=== PATIENT | female | born 1970 | race Caucasian/White ===

== ENCOUNTER 2016-11-02 07:04 | Emergency (ER) | payer OTHER ==
[~2016-11-02] VITALS: Ht 160 cm; Wt 152.0 kg
[~2016-11-02 07:04] MED LIST: AMLO-147 PO; ASPI-664 PO; BENA10TA48 PO; FENO145T19 PO; HYDR2TAB36 PO; INSU100V14 SC; METF1000 PO; METO10TA92 PO; METR500T PO; NPH,100V SC; PANT40TA3 PO; SITA100T8 PO
[2016-11-02 07:16] VITALS: Ht 160 cm; Wt 152.0 kg
[2016-11-02] MEDS ORDERED: ONDANSETRON (ODT) 4 MG TAB ODT STA (07:33)
[2016-11-02] MEDS ORDERED: HYDR-902 PO (07:35)
[2016-11-02] MEDS ORDERED: DIAZ-90 PO (07:35)
[2016-11-02] MEDS ORDERED: IBUP800T25 PO (07:35)
[2016-11-02] MEDS ORDERED: ONDA4TAB14 PO (07:35)
--- NOTE | 2016-11-02 07:41 | ERA ---
ER Documentation Chief Complaint Date/Time DATE: 11/02/16 TIME: 07:37 Chief Complaint NECK PAIN X 1 WEEK. HPI 46-year-old female. The patient has a history of hypothyroidism, morbid obesity, diabetes. The patient presents with approximately 1-2 weeks of neck pain. She describes it as paraspinal right sided to the trapezius and right upper extremity that is dull aching and throbbing and is worse with movement. She denies any motor weakness, no numbness or tingling, no falls or injuries. She denies any chest pain or headache, no dizziness or vertigo. She denies any migratory pain. She states the pain is improved with Motrin but persistence caused her to come to the emergency room. The patient's blood pressure is noted be elevated, she has a history of prolonged essential hypertension and states compliance with her medications. She states her blood pressure becomes elevated when she is in pain. She denies any chest pain or mid back pain. ROS All systems reviewed and are negative except as per history of present illness. Medications Home Meds Active Scripts Diazepam* (Valium*) 5 Mg Tablet, 5 MG PO Q8 Y for MUSCLE SPASMS, #10 TAB Prov:MARILOU KAUR MD 11/02/16 Ondansetron (Ondansetron Odt) 4 Mg Tab.rapdis, 4 MG PO Q6H Y for NAUSEA AND/OR VOMITING, #30 TAB Prov:MARILOU KAUR MD 11/02/16 Hydrocodone/Acetaminophen (Broadus 10-325 Tablet) 1 Each Tablet, 1 TAB PO Q6H Y for PAIN, #10 TAB Prov:MARILOU KAUR MD 11/02/16 Ibuprofen* (Motrin*) 800 Mg Tab, 800 MG PO Q6H Y for PAIN AND OR ELEVATED TEMP, #30 TAB Prov:MARILOU KAUR MD 11/02/16 Metoclopramide* (Reglan*) 10 Mg Tablet, 10 MG PO AC MEALS AND BEDTIME Y for NAUSEA, #40 TAB Prov:JULEE ELIAS MD 11/13/15 Pantoprazole* (Protonix*) 40 Mg Tablet.dr, 40 MG PO DAILY for gastritis , #60 TAB Prov:JULEE ELIAS MD 8/17/16 Hydromorphone Hcl* (Dilaudid*) 2 Mg Tablet, 2 MG PO Q4H Y for severe pain, #40 TAB Prov:JULEE ELIAS MD 11/13/15 Metronidazole* (Flagyl*) 500 Mg Tablet, 500 MG PO Q8 for Lef tubo ovarain abscess + div, #39 TAB Prov:JULEE ELIAS MD 11/13/15 Reported Medications Insulin Regular, Human (Humulin R) 100 Units/Ml Vial, 12 UNIT SC QPM, VIAL 10/28/15 Insulin Regular, Human (Humulin R) 100 Units/Ml Vial, 24 UNIT SC AC BREAKFAST, VIAL 10/28/15 Nph, Human Insulin Isophane (Humulin N) 100 Units/Ml Vial, 9 UNIT SC QPM, VIAL 10/28/15 Nph, Human Insulin Isophane (Humulin N) 100 Units/Ml Vial, 12 UNIT SC AC BREAKFAST, VIAL 10/28/15 Benazepril Hcl* (Benazepril Hcl*) 10 Mg Tablet, 10 MG PO DAILY, #30 TAB 10/28/15 Sitagliptin* (Januvia*) 100 Mg Tablet, 100 MG PO DAILY, #30 TAB 10/28/15 Fenofibrate Nanocrystallized* (Fenofibrate*) 145 Mg Tablet, 145 MG PO DAILY, TAB 10/28/15 Aspirin (Low Dose Aspirin) 81 Mg Tablet.dr, 81 MG PO DAILY, #30 TAB 10/28/15 Metformin Hcl* (Metformin Hcl*) 1,000 Mg Tablet, 1000 MG PO WITH BREAKFAST DINNE , #30 TAB 10/28/15 Amlodipine Besylate* (Amlodipine Besylate*) 10 Mg Tablet, 10 MG PO DAILY, #30 TAB 10/28/15 Allergies Allergies: Coded Allergies: Penicillins (Verified Allergy, Unknown, 10/28/15) PMhx/Soc History of Surgery: Yes (VAGINAL SURGERY) Anesthesia Reaction: No Hx Neurological Disorder: No Hx Respiratory Disorders: No Hx Cardiac Disorders: Yes (HYPERTENSION) Hx Psychiatric Problems: No Hx Miscellaneous Medical Probl: No Hx Alcohol Use: No Hx Substance Use: No Hx Tobacco Use: No FmHx Family History: diabetes Physical Exam Vitals Vital Signs Date Time Temp Pulse Resp B/P Pulse Ox O2 Delivery O2 Flow Rate FiO2 11/02/16 07:16 98.3 65 19 193/108 99 Physical Exam General: Well developed, well nourished, no acute distress Head: Normocephalic, atraumatic. Eyes: Pupils equally reactive, EOM intact ENT: Moist mucous membranes Neck: Supple, no lymphadenopathy, no midline tenderness deformities or step-offs , full active and passive range of motion, soft tissue tenderness along the right paraspinal neck muscles and right trapezius muscle. Respiratory: Lungs clear bilaterally, no distress Cardiovascular: RRR, no murmurs, rubs, or gallops Abdominal: Soft, non-tender, non-distended, no peritoneal signs : Deferred MSK: No edema, no unilateral swelling, 5/5 strength Neurologic: Alert and oriented, moving all extremities, normal speech, no focal weakness, no cerebellar signs Skin: No rash Psych: Normal mood Results 24 hrs Current Medications Medications (Trade) Dose Ordered Sig/Ok Route PRN Reason Start Time Stop Time Status Last Admin Dose Admin Acetaminophen/ Hydrocodone Bitart (Broadus (10/325)) 1 tab ONCE ONCE PO 11/02/16 08:00 11/02/16 08:01 Ondansetron HCl (Zofran Odt) 4 mg ONCE STAT ODT 11/02/16 07:33 11/02/16 07:34 DC Procedures/MDM MEDICAL DECISION MAKING: The patient presents with nontraumatic paraspinal right neck pain. Patient has a history of morbid obesity and hypertension. Her symptoms are extremely reproducible both with her movements and on physical exam. I believe this is consistent with either muscle strain, cervical radiculopathy. While the patient 's blood pressure is elevated she does not describe any sudden onset of symptoms , she has reproducible symptoms and she has no migratory pain. I do not believe that her symptoms are suggestive of acute dissection. The patient additionally does not have any headache, other neurologic symptoms or chest pain. I do not believe she requires an EKG and do not believe this is consistent with atypical angina. The patient also notes to have elevated blood pressure likely secondary to pain response. Given no chest pain, no evidence of endorgan dysfunction I do not believe she requires rapid lowering of the blood pressure as the risks outweigh the benefits. Pain control is most appropriate in this setting. Patient's blood pressure was elevated (>120/80) but appears stable without evidence of hypertensive emergency or urgency. The patient was counseled about the risks of hypertension and urged to pursue outpatient monitoring and therapy within a week with their primary care physician. ER COURSE: The patient was advised diet, exercise, range of motion exercises, weight loss, PT OT may be appropriate. Outpatient primary care referral for consideration of MRI may be appropriate as well. continue NSAIDs as needed pain. Take with food. The patient was advised to return for any worsening symptoms, sudden onset of symptoms, chest pain or headache. Patient verbalizes understanding. A contact clerk was used. I kept the patient and/or family informed of laboratory and diagnostic imaging results throughout the emergency room course. DISPOSITION PLAN: We discussed follow up with the patient's primary care doctor within 24 to 48 hours as needed. We also discussed return to the emergency room for worsening symptoms or worsening condition. Outpatient referral: [None required] Discharge Medications: Broadus, Motrin, Valium, Zofran We discussed the use of narcotics including avoidance of operating heavy machinery and driving as well as its addictive properties. Departure Diagnosis: Primary Impression: Neck pain Additional Impressions: Cervical radiculopathy Morbid obesity Qualified Code: E66.01 - Morbid obesity due to excess calories Condition: Good Patient Instructions: Neck Pain, No Trauma Additional Instructions: Llame al doctor nombrado abajo (Referral Sources) MAANA y derrick todd MICHELLE PARA DENTRO DE TODD SEMANA. Dgale a la secretaria que nosotros le instruimos hacer esta michelle.Avise o llame si esteves condicin se empeora antes de la michelle. MARILOU KAUR MD Nov 02, 2016 07:41
[2016-11-02] MEDS ORDERED: HYDROCODONE/APAP (10/325) TAB PO ONE (08:00)
== END 2016-11-02 07:52 | disposition home or self-care (01) ==
LOC: E/R 07:04
DX: M54.2 Cervicalgia (principal); M54.12 Radiculopathy, cervical region; E66.01 Morbid (severe) obesity due to excess calories; E11.9 Type 2 diabetes mellitus without complications; I10 Essential (primary) hypertension; E03.9 Hypothyroidism, unspecified; Z68.43 Body mass index [BMI] 50.0-59.9, adult; Z79.4 Long term (current) use of insulin; Z79.82 Long term (current) use of aspirin; Z79.84 Long term (current) use of oral hypoglycemic drugs
CPT/HCPCS: Z7502; Z7610; 99284

== ENCOUNTER 2017-06-09 12:58 | Emergency (ER) | END 2017-06-09 23:40 | disposition home or self-care (01) ==

== ENCOUNTER 2017-10-29 11:19 | Emergency (ER) | END 2017-10-29 14:02 | disposition home or self-care (01) ==

== ENCOUNTER 2018-01-19 08:21 | Emergency (ER) | END 2018-01-19 12:10 | disposition home or self-care (01) ==